=== PATIENT | female | born 1975 | race Caucasian/White ===

== ENCOUNTER 2017-07-17 19:12 | Inpatient (IN) | payer OTHER ==
[~2017-07-17] VITALS: Ht 175.3 cm; Wt 203.6 kg
[2017-07-17 21:17] VITALS: BP 121/59; PULSE 77; RESP 22
[2017-07-17 21:19] VITALS: Ht 175.3 cm; Wt 203.6 kg
[2017-07-17 21:27] VITALS: PULSE 65
[2017-07-17] MEDS: ALBUTEROL/IPRATROPIUM (NEB) 3 ML AMP HHN SCH (22:19)
[2017-07-17] MEDS ORDERED: morphine 2 MG INJ IV PRN (22:30)
[2017-07-17] MEDS ORDERED: GLUCOSE GEL 15 GRAM TUBE BUCCAL PRN (23:00)
[2017-07-17] MEDS ORDERED: GLUCAGON 1 MG INJ IM PRN (23:00)
[2017-07-17] MEDS ORDERED: DEXTROSE 50% 50 ML SYRINGE IV PRN ×2 (23:00)
[2017-07-17] MEDS ORDERED: GLUCOSE GEL 15 GRAM TUBE PO PRN ×2 (23:00)
[2017-07-18] VITALS (14 sets, daily range): BP systolic 115–145; BP diastolic 63–83; PULSE 34–87; RESP 16–21
[2017-07-18] MEDS: ALBUTEROL/IPRATROPIUM (NEB) 3 ML AMP HHN SCH ×6 (00:41→20:09)
[2017-07-18] MEDS ORDERED: ACCU-CHEK XX SCH (02:00)
[2017-07-18] MEDS: ACCU-CHEK XX SCH (02:00)
[2017-07-18] MEDS ORDERED: FUROSEMIDE 20 MG INJ IV SCH (06:00)
--- NOTE | 2017-07-18 07:17 | HP ---
Date/Time of Note Date/Time of Note DATE: 07/18/17 TIME: 07:08 Assessment/Plan VTE Prophylaxis VTE Prophylaxis Intervention: LMWH Lines/Catheters IV Catheter Type (from [facility]): Saline Lock Urinary Cath still in place: No Assessment/Plan Assessment/Plan 1. Shortness of breath with hypoxia -Differential diagnoses are broad, including pulmonary edema from a cardiac etiology vs pulmonary embolism. Her weight and the sleep apnea is also a contributing factor here. -Will be treated with supplemental oxygen, bronchodilators, diuresis with Lasix. Will empirically start treatment dose Lovenox given elevated d-dimer. Obtain lower extremity Doppler ultrasound to evaluate for DVT. -will obtain a 2D echo -Will check to see if V/Q scan can be done -Place a pulmonary consult 2. Chest pain, need to rule out ACS -Trend troponin -Supplemental oxygen and aspirin -Continue treatment dose Lovenox considering PE is possibility 3. Morbid obesity, with a BMI of 66 -Weight reduction advised 4. Obstructive sleep apnea -CPAP at night -Continue supplemental oxygen 5. History of diabetes -Check A1c -Insulin while in-house HPI/ROS Admit Date/Time Admit Date/Time Jul 17, 2017 at 21:00 Hx of Present Illness This is a 42-year-old morbidly obese female with a BMI of 66, history of diabetes, sleep apnea who initially presented on outside hospital complaining of shortness of breath, cough and chest pain. Symptoms started about a month ago and have been progressively getting worse. Cough is dry. Chest pain is located in the mid chest with no radiation. She denied fever, chills, abdominal pain, nausea or vomiting. When she presented to the outside hospital , she was hypoxic with oxygen saturation of 89% on room air and 97% on 2 L. Chest x-ray shows pulmonary edema and cardiomegaly. D-dimer was elevated. Reportedly, because of her weight, CT pulmonary angiogram and V/Q scan could not be done. Patient was transferred to [facility] because of insurance reasons PMH/Family/Social Social History Smoking Status: Former smoker Exam/Review of Systems Vital Signs Vitals Vital Signs Date Time Temp Pulse Resp B/P Pulse Ox O2 Delivery O2 Flow Rate FiO2 07/18/17 06:20 84 95 36 07/18/17 05:30 3.0 07/18/17 05:27 22 07/18/17 04:00 98.1 145/77 07/18/17 00:41 Aerosol Nasal Cannula Intake and Output 07/17/17 07/17/17 07/18/17 15:00 23:00 07:00 Intake Total 500 ml Balance 500 ml Exam Constitutional: other (Obese female lying in bed, and showing sign of mild respiratory distress) Head: atraumatic, normocephalic Eyes: EOMI, PERRL Respiratory: diminished breath sounds Cardiovascular: nl pulses, regular rate and rhythm Gastrointestinal: other (Obese), soft Extremities: normal pulses Medications Medications Current Medications Furosemide (Lasix) 20 mg DAILY@06 IV Last administered on 07/18/17t 05:55; Admin Dose 20 MG; Start 07/18/17 at 06:00 Diagnostic Test (Pha) (Accu-Chek) 1 ea 02 XX ; Start 07/18/17 at 02:00 Morphine Sulfate (morphine) 2 mg Q4H PRN IV PAIN; Start 07/17/17 at 22:30 Miscellaneous Information 1 ea NOTE XX ; Start 07/17/17 at 23:00 Glucose (Glutose) 15 gm Q15M PRN PO DECREASED GLUCOSE; Start 07/17/17 at 23:00 Glucose (Glutose) 22.5 gm Q15M PRN PO DECREASED GLUCOSE; Start 07/17/17 at 23: 00 Dextrose (D50w Syringe) 25 ml Q15M PRN IV DECREASED GLUCOSE; Start 07/17/17 at 23:00 Dextrose (D50w Syringe) 50 ml Q15M PRN IV DECREASED GLUCOSE; Start 07/17/17 at 23:00 Glucagon (Glucagen) 1 mg Q15M PRN IM DECREASED GLUCOSE; Start 07/17/17 at 23: 00 Glucose (Glutose) 15 gm Q15M PRN BUCCAL DECREASED GLUCOSE; Start 07/17/17 at 23:00 Influenza Virus Vaccine (Fluzone) 0.5 ml ONCE ONCE IM* ; Start 07/18/17 at 09: 00; Stop 07/18/17 at 09:01 DAVID DONAHUE MD Jul 18, 2017 07:17
[2017-07-18] MEDS: INSULIN ASPART [NOVOLOG] 3 ML PEN SC SCH ×4 (07:55→21:00)
[2017-07-18 08:23] LABS: BASOPHILS % 0.1 % (0.0-2.0); EOSINOPHILS # 0.1 10^3/ul (0.0-0.5); EOSINOPHILS % 0.6 % (0.0-7.0); HEMOGLOBIN 12.1 g/dl (12.0-16.0); LYMPHOCYTES # 1.6 10^3/ul (0.8-2.9); LYMPHOCYTES % 15.8 % (15.0-51.0); MEAN CORPUSCULAR HEMOGLOBIN 27.6 pg (29.0-33.0); MEAN CORPUSCULAR HGB CONC 30.3 g/dl (32.0-37.0); MEAN CORPUSCULAR VOLUME 91.3 fl (82.0-101.0); MEAN PLATELET VOLUME 9.8 fl (7.4-10.4); MONOCYTE # 0.4 10^3/ul (0.3-0.9); MONOCYTES % 3.9 % (0.0-11.0); NEUTROPHILS % 79.1 % (39.0-77.0); PLATELET COUNT 317 10^3/UL (140-415); RED BLOOD COUNT 4.38 10^6/ul (4.20-5.40); RED CELL DISTRIBUTION WIDTH 15.5 % (11.5-14.5); WHITE BLOOD COUNT 10.1 10^3/ul (4.8-10.8)
[2017-07-18] MEDS: ASPIRIN (EC) 81 MG TAB PO SCH (08:29)
[2017-07-18 08:45] LABS: ALANINE AMINOTRANSFERASE 35 IU/L (13-69); ALBUMIN 3.7 g/dl (3.3-4.9); ALBUMIN/GLOBULIN RATIO 0.88; ALKALINE PHOSPHATASE 100 IU/L (42-121); ANION GAP 10 (8-16); ASPARTATE AMINO TRANSFERASE 20 IU/L (15-46); BILIRUBIN,INDIRECT 0.3 mg/dl (0-1.1); BILIRUBIN,TOTAL 0.3 mg/dl (0.2-1.3); BLOOD UREA NITROGEN 12 mg/dl (7-20); CALCIUM 8.7 mg/dl (8.4-10.2); CARBON DIOXIDE 36 mmol/L (21-31); CHLORIDE 101 mmol/L (97-110); CHOL/HDL RATIO 4.6 RATIO; CHOLESTEROL 126 mg/dl (100-200); CK-MB 0.54 ng/ml (0.0-2.4); CREATINE KINASE 36 IU/L (23-200); CREATININE 0.52 mg/dl (0.44-1.00); GLUCOSE 109 mg/dl (70-220); HDL CHOLESTEROL 27 mg/dl (34-88); POTASSIUM 4.4 mmol/L (3.5-5.1); SODIUM 143 mmol/L (135-144); TOTAL PROTEIN 7.9 g/dl (6.1-8.1); TRIGLYCERIDES 106 mg/dl (0-149); TROPONIN-I < 0.012 ng/ml (0.00-0.12)
[2017-07-18] MEDS ORDERED: INFLUENZA VIRUS VACCINE 0.5 ML (DISPENSING) IM* ONE (09:00)
--- NOTE | 2017-07-18 10:30 | RADRPT ---
PROCEDURE: US bilateral lower extremity veins. CLINICAL INDICATION: Shortness of breath. TECHNIQUE: Multiple longitudinal and transverse images of the bilateral lower extremity veins were obtained with morales scale and color Doppler imaging. The common femoral vein, femoral vein, and popl iteal vein were evaluated. 2D grayscale measurements with compression sonography, color Doppler, and pulsed Doppler with augmentation. COMPARISON: No prior studies are available for comparison. FINDINGS: The bilateral common femoral, femoral and popliteal veins are normally compressible throughout. Col or flow demonstrates normal filling of the vessels. Normal waveforms are visualized and there is no rmal response to augmentation. IMPRESSION: 1. No evidence of deep vein thrombosis involving either lower extremity. RPTAT: QQ .Charly Riddle MD, MD Date Time Electronically viewed and signed by .Charly Riddle MD, MD on 07/18/2017 10:30 .R/
--- NOTE | 2017-07-18 12:17 | CONS ---
Date/Time of Note Date/Time of Note DATE: 07/18/17 TIME: 12:12 Assessment/Plan Assessment/Plan Additional Assessment/Plan Lower extremity venous Doppler is negative for any DVT. Assessment and recommendations; 1. Patient admitted for shortness of breath which is likely from underlying obesity/hypoventilation syndrome with possibly superimposed obstructive sleep apnea. 2. History of diabetes and hypertension. Obtain a blood gas. Will obtain a chest x-ray. Continue BiPAP for now. Further recommendations to be made once ABG and chest x-ray results are available. Consultation Date/Type/Reason Admit Date/Time Jul 17, 2017 at 21:00 Date of Consultation: Jul 18, 2017 Type of Consultation: Pulmonary Reason for Consultation Pulmonary consultation requested for evaluation of shortness of breath. History of presenting illness; patient is a pleasant 42-year-old lady who came into the hospital yesterday with a few days history of increasing shortness of breath. Patient however denies any chest pain, wheezing, coughing, sputum production. Patient has been started on overnight BiPAP and according to her she is improved significantly. Patient denies any abdominal pain, lower extremity pain, any swelling. Denies any fever or chills. Past medical history; 1. Patient with history of diabetes. 2. History of hypertension. 3. No known history of sleep apnea. 4. History of C-sections. Medications; reviewed. Allergies; none. Social history; patient quit smoking 10 years ago. No history of any alcohol or drug abuse. Family history; she is single, she has 3 children. Various family members of diabetes. Occupation history; patient is on disability. General exam; young woman, morbidly obese, currently in no distress. Awake and alert. Social History Smoking Status: Former smoker Exam/Review of Systems Vital Signs Vitals Vital Signs Date Time Temp Pulse Resp B/P Pulse Ox O2 Delivery O2 Flow Rate FiO2 07/18/17 11:38 98.5 71 21 138/83 95 07/18/17 09:56 3.0 07/18/17 09:55 Nasal Cannula 07/18/17 06:20 36 Intake and Output 07/17/17 07/17/17 07/18/17 15:00 23:00 07:00 Intake Total 500 ml Balance 500 ml Exam HEENT exam; supple neck, no JVD. No lymphadenopathy. Midline trachea. No thyromegaly. Pharynx is clear. Pupils are midsize and reactive to light. Chest exam; diminished but clear breath sounds. S1-S2 audible, no murmurs. Regular rhythm. Abdomen exam; protuberant. Nontender. Bowel sounds audible. Extremity exam; no peripheral edema. SAND MIXER MACHINE exam; no focal deficit. Results Result Diagram: 07/18/17 0733 07/18/17 0733 Results 24 hrs Laboratory Tests Test 07/18/17 07:33 07/18/17 08:26 07/18/17 11:49 White Blood Count 10.1 Red Blood Count 4.38 Hemoglobin 12.1 Hematocrit 40.0 Mean Corpuscular Volume 91.3 Mean Corpuscular Hemoglobin 27.6 L Mean Corpuscular Hemoglobin Concent 30.3 L Red Cell Distribution Width 15.5 H Platelet Count 317 Mean Platelet Volume 9.8 Neutrophils % 79.1 H Lymphocytes % 15.8 Monocytes % 3.9 Eosinophils % 0.6 Basophils % 0.1 Nucleated Red Blood Cells % 0.0 Neutrophils # 8.0 H Lymphocytes # 1.6 Monocytes # 0.4 Eosinophils # 0.1 Basophils # 0.0 Nucleated Red Blood Cells # 0.0 Sodium Level 143 Potassium Level 4.4 Chloride Level 101 Carbon Dioxide Level 36 H Anion Gap 10 Blood Urea Nitrogen 12 Creatinine 0.52 Glucose Level 109 Hemoglobin A1c 6.4 H Calcium Level 8.7 Total Bilirubin 0.3 Direct Bilirubin 0.00 Indirect Bilirubin 0.3 Aspartate Amino Transf (AST/SGOT) 20 Alanine Aminotransferase (ALT/SGPT) 35 Alkaline Phosphatase 100 Creatine Kinase 36 Creatine Kinase Index 1.5 Creatinine Kinase MB (Mass) 0.54 Troponin I < 0.012 Total Protein 7.9 Albumin 3.7 Globulin 4.20 H Albumin/Globulin Ratio 0.88 Triglycerides Level 106 Cholesterol Level 126 LDL Cholesterol, Calculated 78 HDL Cholesterol 27 L Cholesterol/HDL Ratio 4.6 Thyroid Stimulating Hormone (TSH) 1.070 Bedside Glucose 104 193 Medications Medications Current Medications Furosemide (Lasix) 20 mg DAILY@06 IV Last administered on 07/18/17t 05:55; Admin Dose 20 MG; Start 07/18/17 at 06:00 Diagnostic Test (Pha) (Accu-Chek) 1 ea 02 XX ; Start 07/18/17 at 02:00 Morphine Sulfate (morphine) 2 mg Q4H PRN IV PAIN; Start 07/17/17 at 22:30 Miscellaneous Information 1 ea NOTE XX ; Start 07/17/17 at 23:00 Glucose (Glutose) 15 gm Q15M PRN PO DECREASED GLUCOSE; Start 07/17/17 at 23:00 Glucose (Glutose) 22.5 gm Q15M PRN PO DECREASED GLUCOSE; Start 07/17/17 at 23: 00 Dextrose (D50w Syringe) 25 ml Q15M PRN IV DECREASED GLUCOSE; Start 07/17/17 at 23:00 Dextrose (D50w Syringe) 50 ml Q15M PRN IV DECREASED GLUCOSE; Start 07/17/17 at 23:00 Glucagon (Glucagen) 1 mg Q15M PRN IM DECREASED GLUCOSE; Start 07/17/17 at 23: 00 Glucose (Glutose) 15 gm Q15M PRN BUCCAL DECREASED GLUCOSE; Start 07/17/17 at 23:00 Enoxaparin Sodium (Lovenox) 150 mg Q12 SC ; Start 07/18/17 at 09:00; Status UNV Aspirin (Halfprin) 81 mg DAILY PO Last administered on 07/18/17t 08:29; Admin Dose 81 MG; Start 07/18/17 at 09:00 KAYDEN PANIAGUA Jul 18, 2017 12:17
[2017-07-18 13:46] LABS: AADO2 Arterial 73.5 mmHg (7.0-24.0); Allen Test ACCEPTAB; Arterial Base Excess 9.5 mmol/L (-3.0-3); Arterial COHb 0.8 % (0.0-3.0); Arterial Fraction of Oxyhgb 91.9 % (93.0-99.0); Arterial MetHb 0.2 % (0.0-1.5); Arterial Total Hemglobin 13.3 g/dl (12.0-18.0); MODE NASAL CANNULA
--- NOTE | 2017-07-18 13:57 | RADRPT ---
Echocardiogram Report Patient Name: YOUSUF TOLBERT Gender: Female Date: 1975 Study Date: 18-Jul-2017 Washer Operator: Diamante Trivedi RDCS Location: [id number] Ref. Physician: DAVID DONAHUE Quality: Technically Difficult Study Procedures: Transthoracic echocardiogram with complete 2D, M-Mode, and doppler examination. Indications: pulm edema. 2D/M Mode Doppler Measurement Value Normal Ranges Measurement Value Normal Ranges LVIDd 2D 4.8 3.5 - 5.6 cm AV Peak Srinivasa 1.7 m/sec LVIDs 2D 3.2 2.1 - 4.1 cm AV Peak PG 11.0 mmHg FS 2D 34.6 % LVOT Peak Srinivasa 1.3 m/sec LVPWd 2D 1.3 0.6 - 1.1 cm LVOT Peak PG 7.0 mmHg IVSd 2D 1.3 0.6 - 1.1 cm MV E Peak Srinivasa 0.7 m/sec IVS/LVPW 2D 1.0 MV A Peak Srinivasa 0.9 m/sec AoR Diam 2D 3.0 2.0 - 3.7 cm MV E/A 0.7 LA/Ao 2D 1 0 - 1 MV Decel Time 173 msec EDV 2D 112.0 cm3 MV E/A 0.7 ESV 2D 31.3 cm3 TR Peak Srinivasa 3.0 m/sec LA Dimen 2D 3.8 2.3 - 4.0 cm TR Peak PG 37.0 mmHg RVSP 52.0 mmHg Findings Left Ventricle: Normal left ventricular systolic function. Normal left ventricular cavity size. Mild concentric left ventricular hypertrophy. Ejection fraction is visually estimated at 55 %. Tissue Doppler/Mitral Doppler indices are consistent with impaired relaxation (Stage I diastolic dysfunction). Right Ventricle: Not well visualized. Left Atrium: Not well visualized. Right Atrium: Not well visualized. Mitral Valve: Mitral valve is not well visualized. Aortic Valve: No significant aortic stenosis or insufficiency. Aortic valve not well visualized. Tricuspid Valve: Tricuspid valve not well visualized. Estimated peak PA systolic pressure 52 mmHg. There is mild tricuspid regurgitation. Pulmonic Valve: Pulmonic valve not well visualized. Pericardium: Normal pericardium with no significant pericardial effusion. Aorta: Not well visualized. IVC: Dilated IVC without respiratory collapse consistent with elevated right atrial pressure. Conclusions 1.Technically challenging study. 2.The left ventricle is normal in size with overall normal systolic function. However, not all wall segments well visualized. 3.Estimated left ventricular ejection fraction of 55%. 4.Pulmonary hypertension with estimated RVSP of 52 mmHg. Elevated right atrial pressure. Electronically Signed By: Willam Randolph 18-Jul-2017 13:56:45 -0700 Patient Name: YOUSUF TOLBERT Study Date: 18-Jul-2017 [id number]
[2017-07-18] MEDS: ENOXAPARIN 100 MG/ML SYG SC SCH (14:13)
--- NOTE | 2017-07-18 14:14 | RADRPT ---
PROCEDURE: XR Chest. CLINICAL INDICATION: Shortness of breath. TECHNIQUE: Single frontal view. COMPARISON: None. FINDINGS: The lungs are clear. The heart is mildly enlarged. There is no pleural effusion. There is no pneumothorax. IMPRESSION: 1. Mild cardiomegaly. 2. Clear lungs. RPTAT: QQ .Charly Riddle MD, MD Date Time Electronically viewed and signed by .Charly Riddle MD, on 07/18/2017 14:14 .R/
[2017-07-18 14:29] LABS: CREATINE KINASE 39 IU/L (23-200)
[2017-07-18 14:43] LABS: CK-MB 0.42 ng/ml (0.0-2.4)
[2017-07-18 14:44] LABS: TROPONIN-I < 0.012 ng/ml (0.00-0.12)
--- NOTE | 2017-07-18 15:03 | PN ---
Date/Time of Note Date/Time of Note DATE: 07/18/17 TIME: 14:58 Assessment/Plan VTE Prophylaxis VTE Prophylaxis Intervention: SCD's Lines/Catheters IV C[facility]ter Type (from [facility]): Saline Lock Urinary Cath still in place: No Assessment/Plan Chief Complaint/Hosp Course Assessment and plan 1. Shortness of breath and hypoxia. Suspect some element of obesity hypoventilation. Continue internet manager recommendations. tirate off o2 if possible. Unable to obtain a VQ scan or CT scan of the chest due to patient's body habitus. 2. Chest pain. Rule out ACS. Monitor troponin. Gym Manager follow. Echocardiogram showed diastolic dysfunction. 3. Morbid obesity. Weight reduction was advised. 4. Sleep apnea. Continue on CPAP. 5. Hyperlipidemia. Continue on low fat/cholesterol diet Disposition and plan: Monitor respiratory status. Follow-up with internet manager or conditions. Discussed plan of care with Dr. Dockery Problems: Subjective 24 Hr Interval Summary Free Text/Dictation reports little better breathing today Exam/Review of Systems Vital Signs Vitals Vital Signs Date Time Temp Pulse Resp B/P Pulse Ox O2 Delivery O2 Flow Rate FiO2 07/18/17 14:15 96 3.0 07/18/17 14:14 76 20 Nasal Cannula 07/18/17 11:38 98.5 138/83 07/18/17 06:20 36 Intake and Output 07/17/17 07/17/17 07/18/17 15:00 23:00 07:00 Intake Total 500 ml Balance 500 ml Exam Constitutional: alert, oriented Eyes: nl conjunctiva Neck: non-tender, supple Respiratory: diminished breath sounds (minimally at bases) Cardiovascular: other (regular rate ) Neurological: GRAPHIC SPECIALIST II-XII intact, nl mental status, nl speech Skin: nl turgor Results Result Diagram: 07/18/17 0733 07/18/1733 Results 24 hrs Laboratory Tests Test 07/18/17 07:33 07/18/17 08:26 07/18/17 11:49 07/18/17 12:17 White Blood Count 10.1 Red Blood Count 4.38 Hemoglobin 12.1 Hematocrit 40.0 Mean Corpuscular Volume 91.3 Mean Corpuscular Hemoglobin 27.6 L Mean Corpuscular Hemoglobin Concent 30.3 L Red Cell Distribution Width 15.5 H Platelet Count 317 Mean Platelet Volume 9.8 Neutrophils % 79.1 H Lymphocytes % 15.8 Monocytes % 3.9 Eosinophils % 0.6 Basophils % 0.1 Nucleated Red Blood Cells % 0.0 Neutrophils # 8.0 H Lymphocytes # 1.6 Monocytes # 0.4 Eosinophils # 0.1 Basophils # 0.0 Nucleated Red Blood Cells # 0.0 Sodium Level 143 Potassium Level 4.4 Chloride Level 101 Carbon Dioxide Level 36 H Anion Gap 10 Blood Urea Nitrogen 12 Creatinine 0.52 Glucose Level 109 Hemoglobin A1c 6.4 H Calcium Level 8.7 Total Bilirubin 0.3 Direct Bilirubin 0.00 Indirect Bilirubin 0.3 Aspartate Amino Transf (AST/SGOT) 20 Alanine Aminotransferase (ALT/SGPT) 35 Alkaline Phosphatase 100 Creatine Kinase 36 Creatine Kinase Index 1.5 Creatinine Kinase MB (Mass) 0.54 Troponin I < 0.012 Total Protein 7.9 Albumin 3.7 Globulin 4.20 H Albumin/Globulin Ratio 0.88 Triglycerides Level 106 Cholesterol Level 126 LDL Cholesterol, Calculated 78 HDL Cholesterol 27 L Cholesterol/HDL Ratio 4.6 Thyroid Stimulating Hormone (TSH) 1.070 Bedside Glucose 104 193 Blood Gas Specimen Source Blood arterial Arterial Blood Date Drawn 07/18/2017 1:31:51 PM Arterial Blood pH (Temp corrected) 7.382 Arterial Blood pCO2 (Temp correct) 63.7 H Arterial Blood pO2 (Temp corrected) 65.6 L Arterial Blood HCO3 37.0 H Arterial Blood Base Excess 9.5 H Arterial Blood Oxygen Saturation 92.8 L Josafat Test ACCEPTAB Arterial Blood Gas Puncture Site Right Radial Arterial Blood Carboxyhemoglobin 0.8 Arterial Blood Methemoglobin 0.2 Blood Gas A-a O2 Differential 73.5 H Oxyhemoglobin Percent 91.9 L Total Hemoglobin 13.3 Blood Gas Temperature 37.0 Blood Gas Modality NASAL CANNULA FiO2 30.0 Blood Gas Notified Whom Blood Gas Notified Time 07/18/2017 1:45:48 PM Test 07/18/17 14:01 Creatine Kinase 39 Creatine Kinase Index 1.1 Creatinine Kinase MB (Mass) 0.42 Troponin I < 0.012 Medications Medications Current Medications Furosemide (Lasix) 20 mg DAILY@06 IV Last administered on 07/18/17t 05:55; Admin Dose 20 MG; Start 07/18/17 at 06:00 Diagnostic Test (Pha) (Accu-Chek) 1 ea 02 XX ; Start 07/18/17 at 02:00 Morphine Sulfate (morphine) 2 mg Q4H PRN IV PAIN; Start 07/17/17 at 22:30 Miscellaneous Information 1 ea NOTE XX ; Start 07/17/17 at 23:00 Glucose (Glutose) 15 gm Q15M PRN PO DECREASED GLUCOSE; Start 07/17/17 at 23:00 Glucose (Glutose) 22.5 gm Q15M PRN PO DECREASED GLUCOSE; Start 07/17/17 at 23: 00 Dextrose (D50w Syringe) 25 ml Q15M PRN IV DECREASED GLUCOSE; Start 07/17/17 at 23:00 Dextrose (D50w Syringe) 50 ml Q15M PRN IV DECREASED GLUCOSE; Start 07/17/17 at 23:00 Glucagon (Glucagen) 1 mg Q15M PRN IM DECREASED GLUCOSE; Start 07/17/17 at 23: 00 Glucose (Glutose) 15 gm Q15M PRN BUCCAL DECREASED GLUCOSE; Start 07/17/17 at 23:00 Enoxaparin Sodium (Lovenox) 150 mg Q12H SC Last administered on 07/18/17 14: 13; Admin Dose 150 MG; Start 07/18/17 at 13:00 Aspirin (Halfprin) 81 mg DAILY PO Last administered on 07/18/17 08:29; Admin Dose 81 MG; Start 07/18/17 at 09:00 JENNIFER NINA Jul 18, 2017 15:03
--- NOTE | 2017-07-18 16:35 | CONS ---
Date/Time of Note Date/Time of Note DATE: 07/18/17 TIME: 16:23 Assessment/Plan Assessment/Plan Chief Complaint/Hosp Course Assessment: Shortness of breath and hypoxia - likely combination of heart failure and obesity hypoventilation syndrome, also some suspicion for pulmonary embolism with elevated D-dimer though patient is unable to get CTA or V/Q scan due to body habitus Atypical chest pain - ruled out for myocardial infarction Acute on chronic diastolic heart failure - LVEF 55%, dilated IVC with <50% respiratory collapse consistent with elevated right atrial pressure Pulmonary hypertension - estimated RVSP 52 mmHg, likely due to obstructive sleep apnea Morbid obesity Probable obstructive sleep apnea and obesity hypoventilation syndrome History of hypertension History of diabetes Recommendations: -increase Lasix to 40mg IV daily -on empiric anticoagulation with Lovenox, per primary team and pulmonology Problems: Consultation Date/Type/Reason Admit Date/Time Jul 17, 2017 at 21:00 Type of Consultation: Cardiology Reason for Consultation shortness of breath, chest pain Hx of Present Illness The patient is a 42 year-old morbidly obese female who presented to an outside hospital with shortness of breath and chest pain. She describes a two day history of shortness of breath and intermittent chest pain lasting for only several seconds when she coughs. She was noted to have hypoxia and an elevated D -dimer, and has been started empirically on anticoagulation with Lovenox. Lower extremity Dopplers were negative for deep vein thrombosis. CT pulmonary angiogram and V/Q scan was not able to be obtained due to the patient's body habitus and weight. She has been transferred to [facility] for further care due to her insurance contract. 14 point review of systems negative other than per HPI. Past Medical History Morbid obesity History of hypertension History of diabetes Social History Alcohol Use: sober Smoking Status: Former smoker Drug Use: none Exam/Review of Systems Vital Signs Vitals Vital Signs Date Time Temp Pulse Resp B/P Pulse Ox O2 Delivery O2 Flow Rate FiO2 07/18/17 15:46 98.1 74 19 126/74 95 07/18/17 14:15 3.0 07/18/17 14:14 Nasal Cannula 07/18/17 06:20 36 Intake and Output 07/17/17 07/17/17 07/18/17 15:00 23:00 07:00 Intake Total 500 ml Balance 500 ml Exam Constitutional: alert, obese, No distress Psych: nl mood/affect, no complaints Head: atraumatic, normocephalic Eyes: nl conjunctiva, nl lids ENMT: nl external ears & nose, nl nasal mucosa & septum Neck: non-tender, supple Respiratory: diminished breath sounds Cardiovascular: regular rate and rhythm Gastrointestinal: non-tender, soft Musculoskeletal: nl extremities to inspection Extremities: No clubbing, No cyanosis, No edema Neurological: nl mental status, nl speech Skin: nl turgor Results Result Diagram: 07/18/17 0733 07/18/17 0733 Results 24 hrs Laboratory Tests Test 07/18/17 07:33 07/18/17 08:26 07/18/17 11:49 07/18/17 12:17 White Blood Count 10.1 Red Blood Count 4.38 Hemoglobin 12.1 Hematocrit 40.0 Mean Corpuscular Volume 91.3 Mean Corpuscular Hemoglobin 27.6 L Mean Corpuscular Hemoglobin Concent 30.3 L Red Cell Distribution Width 15.5 H Platelet Count 317 Mean Platelet Volume 9.8 Neutrophils % 79.1 H Lymphocytes % 15.8 Monocytes % 3.9 Eosinophils % 0.6 Basophils % 0.1 Nucleated Red Blood Cells % 0.0 Neutrophils # 8.0 H Lymphocytes # 1.6 Monocytes # 0.4 Eosinophils # 0.1 Basophils # 0.0 Nucleated Red Blood Cells # 0.0 Sodium Level 143 Potassium Level 4.4 Chloride Level 101 Carbon Dioxide Level 36 H Anion Gap 10 Blood Urea Nitrogen 12 Creatinine 0.52 Glucose Level 109 Hemoglobin A1c 6.4 H Calcium Level 8.7 Total Bilirubin 0.3 Direct Bilirubin 0.00 Indirect Bilirubin 0.3 Aspartate Amino Transf (AST/SGOT) 20 Alanine Aminotransferase (ALT/SGPT) 35 Alkaline Phosphatase 100 Creatine Kinase 36 Creatine Kinase Index 1.5 Creatinine Kinase MB (Mass) 0.54 Troponin I < 0.012 Total Protein 7.9 Albumin 3.7 Globulin 4.20 H Albumin/Globulin Ratio 0.88 Triglycerides Level 106 Cholesterol Level 126 LDL Cholesterol, Calculated 78 HDL Cholesterol 27 L Cholesterol/HDL Ratio 4.6 Thyroid Stimulating Hormone (TSH) 1.070 Bedside Glucose 104 193 Blood Gas Specimen Source Blood arterial Arterial Blood Date Drawn 07/18/2017 1:31:51 PM Arterial Blood pH (Temp corrected) 7.382 Arterial Blood pCO2 (Temp correct) 63.7 H Arterial Blood pO2 (Temp corrected) 65.6 L Arterial Blood HCO3 37.0 H Arterial Blood Base Excess 9.5 H Arterial Blood Oxygen Saturation 92.8 L Josafat Test ACCEPTAB Arterial Blood Gas Puncture Site Right Radial Arterial Blood Carboxyhemoglobin 0.8 Arterial Blood Methemoglobin 0.2 Blood Gas A-a O2 Differential 73.5 H Oxyhemoglobin Percent 91.9 L Total Hemoglobin 13.3 Blood Gas Temperature 37.0 Blood Gas Modality NASAL CANNULA FiO2 30.0 Blood Gas Notified Whom Blood Gas Notified Time 07/18/2017 1:45:48 PM Test 07/18/17 14:01 Creatine Kinase 39 Creatine Kinase Index 1.1 Creatinine Kinase MB (Mass) 0.42 Troponin I < 0.012 Medications Medications Current Medications Furosemide (Lasix) 20 mg DAILY@06 IV Last administered on 07/18/17 05:55; Admin Dose 20 MG; Start 07/18/17 at 06:00 Diagnostic Test (Pha) (Accu-Chek) 1 ea 02 XX ; Start 07/18/17 at 02:00 Morphine Sulfate (morphine) 2 mg Q4H PRN IV PAIN; Start 07/17/17 at 22:30 Miscellaneous Information 1 ea NOTE XX ; Start 07/17/17 at 23:00 Glucose (Glutose) 15 gm Q15M PRN PO DECREASED GLUCOSE; Start 07/17/17 at 23:00 Glucose (Glutose) 22.5 gm Q15M PRN PO DECREASED GLUCOSE; Start 07/17/17 at 23: 00 Dextrose (D50w Syringe) 25 ml Q15M PRN IV DECREASED GLUCOSE; Start 07/17/17 at 23:00 Dextrose (D50w Syringe) 50 ml Q15M PRN IV DECREASED GLUCOSE; Start 07/17/17 at 23:00 Glucagon (Glucagen) 1 mg Q15M PRN IM DECREASED GLUCOSE; Start 07/17/17 at 23: 00 Glucose (Glutose) 15 gm Q15M PRN BUCCAL DECREASED GLUCOSE; Start 07/17/17 at 23:00 Enoxaparin Sodium (Lovenox) 150 mg Q12H SC Last administered on 07/18/17 14: 13; Admin Dose 150 MG; Start 07/18/17 at 13:00 Aspirin (Halfprin) 81 mg DAILY PO Last administered on 07/18/17 08:29; Admin Dose 81 MG; Start 07/18/17 at 09:00 JARRET ADORNO MD Jul 18, 2017 16:34
[2017-07-18] MEDS: FUROSEMIDE 40 MG INJ IV SCH (16:59)
[2017-07-19] VITALS (17 sets, daily range): BP systolic 120–133; BP diastolic 59–87; PULSE 61–110; RESP 17–20
[2017-07-19] MEDS: ALBUTEROL/IPRATROPIUM (NEB) 3 ML AMP HHN SCH ×6 (00:45→21:10)
[2017-07-19] MEDS: ACCU-CHEK XX SCH (02:00)
[2017-07-19] MEDS: ENOXAPARIN 100 MG/ML SYG SC SCH (03:06)
[2017-07-19 07:18] LABS: BASOPHILS % 0.2 % (0.0-2.0); EOSINOPHILS # 0.1 10^3/ul (0.0-0.5); EOSINOPHILS % 1.1 % (0.0-7.0); HEMATOCRIT 39.4 % (37.0-47.0); LYMPHOCYTES # 1.7 10^3/ul (0.8-2.9); LYMPHOCYTES % 17.2 % (15.0-51.0); MEAN CORPUSCULAR HEMOGLOBIN 27.9 pg (29.0-33.0); MEAN CORPUSCULAR HGB CONC 30.5 g/dl (32.0-37.0); MEAN CORPUSCULAR VOLUME 91.6 fl (82.0-101.0); MEAN PLATELET VOLUME 9.5 fl (7.4-10.4); MONOCYTE # 0.5 10^3/ul (0.3-0.9); MONOCYTES % 4.7 % (0.0-11.0); NEUTROPHIL # 7.4 10^3/ul (1.6-7.5); NEUTROPHILS % 76.4 % (39.0-77.0); PLATELET COUNT 274 10^3/UL (140-415); RED CELL DISTRIBUTION WIDTH 15.2 % (11.5-14.5); WHITE BLOOD COUNT 9.7 10^3/ul (4.8-10.8)
[2017-07-19 07:43] LABS: CREATININE 0.51 mg/dl (0.44-1.00); POTASSIUM 4.1 mmol/L (3.5-5.1)
[2017-07-19] MEDS: INSULIN ASPART [NOVOLOG] 3 ML PEN SC SCH ×4 (07:55→20:34)
[2017-07-19] MEDS: ASPIRIN (EC) 81 MG TAB PO SCH (08:07)
[2017-07-19] MEDS: FUROSEMIDE 40 MG INJ IV SCH (08:12)
--- NOTE | 2017-07-19 11:41 | CONS ---
Date/Time of Note Date/Time of Note DATE: 07/19/17 TIME: 11:41 Consultation Date/Type/Reason Admit Date/Time Jul 17, 2017 at 21:00 Initial Consult Date 07/18/17 Type of Consultation: Pulmonary 24 HR Interval Summary Free Text/Dictation Patient not in room for evaluation. Exam/Review of Systems Vital Signs Vitals Vital Signs Date Time Temp Pulse Resp B/P Pulse Ox O2 Delivery O2 Flow Rate FiO2 07/19/17 10:48 20 87 Room Air 07/19/17 09:54 3.0 07/19/17 09:53 72 07/19/17 08:06 98.4 133/72 07/19/17 05:00 50 Intake and Output 07/18/17 07/18/17 07/19/17 15:00 23:00 07:00 Intake Total 800 ml 600 ml Output Total 1300 ml 1800 ml Balance -500 ml -1200 ml Results Result Diagram: 07/19/17 0701 07/19/17 0700 Results 24 hrs Laboratory Tests Test 07/18/17 11:49 07/18/17 12:17 07/18/17 14:01 07/18/17 16:58 Bedside Glucose 193 122 Blood Gas Specimen Source Blood arterial Arterial Blood Date Drawn 07/18/2017 1:31:51 PM Arterial Blood pH (Temp corrected) 7.382 Arterial Blood pCO2 (Temp correct) 63.7 H Arterial Blood pO2 (Temp corrected) 65.6 L Arterial Blood HCO3 37.0 H Arterial Blood Base Excess 9.5 H Arterial Blood Oxygen Saturation 92.8 L Josafat Test ACCEPTAB Arterial Blood Gas Puncture Site Right Radial Arterial Blood Carboxyhemoglobin 0.8 Arterial Blood Methemoglobin 0.2 Blood Gas A-a O2 Differential 73.5 H Oxyhemoglobin Percent 91.9 L Total Hemoglobin 13.3 Blood Gas Temperature 37.0 Blood Gas Modality NASAL CANNULA FiO2 30.0 Blood Gas Notified Whom DH Blood Gas Notified Time 07/18/2017 1:45:48 PM Creatine Kinase 39 Creatine Kinase Index 1.1 Creatinine Kinase MB (Mass) 0.42 Troponin I < 0.012 Test 07/18/17 21:06 07/19/17 07:00 07/19/17 07:01 07/19/17 08:05 Bedside Glucose 107 102 Sodium Level 140 Potassium Level 4.1 Chloride Level 98 Carbon Dioxide Level 39 H Anion Gap 7 L Blood Urea Nitrogen 14 Creatinine 0.51 Glucose Level 105 Calcium Level 9.0 White Blood Count 9.7 Red Blood Count 4.30 Hemoglobin 12.0 Hematocrit 39.4 Mean Corpuscular Volume 91.6 Mean Corpuscular Hemoglobin 27.9 L Mean Corpuscular Hemoglobin Concent 30.5 L Red Cell Distribution Width 15.2 H Platelet Count 274 Mean Platelet Volume 9.5 Neutrophils % 76.4 Lymphocytes % 17.2 Monocytes % 4.7 Eosinophils % 1.1 Basophils % 0.2 Nucleated Red Blood Cells % 0.0 Neutrophils # 7.4 Lymphocytes # 1.7 Monocytes # 0.5 Eosinophils # 0.1 Basophils # 0.0 Nucleated Red Blood Cells # 0.0 Medications Medications Current Medications Diagnostic Test (Pha) (Accu-Chek) 1 ea 02 XX ; Start 07/18/17 at 02:00 Morphine Sulfate (morphine) 2 mg Q4H PRN IV PAIN; Start 07/17/17 at 22:30 Miscellaneous Information 1 ea NOTE XX ; Start 07/17/17 at 23:00 Glucose (Glutose) 15 gm Q15M PRN PO DECREASED GLUCOSE; Start 07/17/17 at 23:00 Glucose (Glutose) 22.5 gm Q15M PRN PO DECREASED GLUCOSE; Start 07/17/17 at 23: 00 Dextrose (D50w Syringe) 25 ml Q15M PRN IV DECREASED GLUCOSE; Start 07/17/17 at 23:00 Dextrose (D50w Syringe) 50 ml Q15M PRN IV DECREASED GLUCOSE; Start 07/17/17 at 23:00 Glucagon (Glucagen) 1 mg Q15M PRN IM DECREASED GLUCOSE; Start 07/17/17 at 23: 00 Glucose (Glutose) 15 gm Q15M PRN BUCCAL DECREASED GLUCOSE; Start 07/17/17 at 23:00 Enoxaparin Sodium (Lovenox) 150 mg Q12H SC Last administered on 07/19/17 03: 06; Admin Dose 150 MG; Start 07/18/17 at 13:00 Aspirin (Halfprin) 81 mg DAILY PO Last administered on 07/19/17 08:07; Admin Dose 81 MG; Start 07/18/17 at 09:00 Furosemide (Lasix) 40 mg DAILY IV Last administered on 07/19/17 08:12; Admin Dose 40 MG; Start 07/18/17 at 16:30 KAYDEN PANIAGUA Jul 19, 2017 11:41
--- NOTE | 2017-07-19 12:04 | PN ---
Date/Time of Note Date/Time of Note DATE: 07/19/17 TIME: 11:54 Assessment/Plan VTE Prophylaxis VTE Prophylaxis Intervention: LMWH Lines/Catheters IV [facility] Type [facility]from [facility] Urinary Cath still in place: No Assessment/Plan Chief Complaint/Hosp Course 1. 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 Nose pain secondary to recent fall Facial x-ray to rule out any fractures 3. Atypical chest pain ACS ruled out Cardiology consultation appreciated 4. Acute on chronic diastolic heart failure - LVEF 55%, dilated IVC with elevated right atrial pressure Continue Lasix 40 mg IV daily 5. Morbid obesity Weight loss advised Prophylaxis: Lovenox . Problems: Subjective 24 Hr Interval Summary Constitutional: no complaints Exam/Review of Systems Vital Signs Vitals Vital Signs Date Time Temp Pulse Resp B/P Pulse Ox O2 Delivery O2 Flow Rate FiO2 07/19/17 10:48 20 87 Room Air 07/19/17 09:54 3.0 07/19/17 09:53 72 07/19/17 08:06 98.4 133/72 07/19/17 05:00 50 Intake and Output 07/18/17 07/18/17 07/19/17 15:00 23:00 07:00 Intake Total 800 ml 600 ml Output Total 1300 ml 1800 ml Balance -500 ml -1200 ml Exam Constitutional: alert, oriented Respiratory: clear to auscultation Cardiovascular: regular rate and rhythm Gastrointestinal: soft, No distended Musculoskeletal: nl extremities to inspection Results Result Diagram: 07/19/17 0701 07/19/17 0700 Results 24 hrs Laboratory Tests Test 07/18/17 12:17 07/18/17 14:01 07/18/17 16:58 07/18/17 21:06 Blood Gas Specimen Source Blood arterial Arterial Blood Date Drawn 07/18/2017 1:31:51 PM Arterial Blood pH (Temp corrected) 7.382 Arterial Blood pCO2 (Temp correct) 63.7 H Arterial Blood pO2 (Temp corrected) 65.6 L Arterial Blood HCO3 37.0 H Arterial Blood Base Excess 9.5 H Arterial Blood Oxygen Saturation 92.8 L Josafat Test ACCEPTAB Arterial Blood Gas Puncture Site Right Radial Arterial Blood Carboxyhemoglobin 0.8 Arterial Blood Methemoglobin 0.2 Blood Gas A-a O2 Differential 73.5 H Oxyhemoglobin Percent 91.9 L Total Hemoglobin 13.3 Blood Gas Temperature 37.0 Blood Gas Modality NASAL CANNULA FiO2 30.0 Blood Gas Notified Whom Blood Gas Notified Time 07/18/2017 1:45:48 PM Creatine Kinase 39 Creatine Kinase Index 1.1 Creatinine Kinase MB (Mass) 0.42 Troponin I < 0.012 Bedside Glucose 122 107 Test 07/19/17 07:00 07/19/17 07:01 07/19/17 08:05 Sodium Level 140 Potassium Level 4.1 Chloride Level 98 Carbon Dioxide Level 39 H Anion Gap 7 L Blood Urea Nitrogen 14 Creatinine 0.51 Glucose Level 105 Calcium Level 9.0 White Blood Count 9.7 Red Blood Count 4.30 Hemoglobin 12.0 Hematocrit 39.4 Mean Corpuscular Volume 91.6 Mean Corpuscular Hemoglobin 27.9 L Mean Corpuscular Hemoglobin Concent 30.5 L Red Cell Distribution Width 15.2 H Platelet Count 274 Mean Platelet Volume 9.5 Neutrophils % 76.4 Lymphocytes % 17.2 Monocytes % 4.7 Eosinophils % 1.1 Basophils % 0.2 Nucleated Red Blood Cells % 0.0 Neutrophils # 7.4 Lymphocytes # 1.7 Monocytes # 0.5 Eosinophils # 0.1 Basophils # 0.0 Nucleated Red Blood Cells # 0.0 Bedside Glucose 102 Medications Medications Current Medications Diagnostic Test (Pha) (Accu-Chek) 1 ea 02 XX ; Start 07/18/17 at 02:00 Morphine Sulfate (morphine) 2 mg Q4H PRN IV PAIN; Start 07/17/17 at 22:30 Miscellaneous Information 1 ea NOTE XX ; Start 07/17/17 at 23:00 Glucose (Glutose) 15 gm Q15M PRN PO DECREASED GLUCOSE; Start 07/17/17 at 23:00 Glucose (Glutose) 22.5 gm Q15M PRN PO DECREASED GLUCOSE; Start 07/17/17 at 23: 00 Dextrose (D50w Syringe) 25 ml Q15M PRN IV DECREASED GLUCOSE; Start 07/17/17 at 23:00 Dextrose (D50w Syringe) 50 ml Q15M PRN IV DECREASED GLUCOSE; Start 07/17/17 at 23:00 Glucagon (Glucagen) 1 mg Q15M PRN IM DECREASED GLUCOSE; Start 07/17/17 at 23: 00 Glucose (Glutose) 15 gm Q15M PRN BUCCAL DECREASED GLUCOSE; Start 07/17/17 at 23:00 Enoxaparin Sodium (Lovenox) 150 mg Q12H SC Last administered on 07/19/17 03: 06; Admin Dose 150 MG; Start 07/18/17 at 13:00 Aspirin (Halfprin) 81 mg DAILY PO Last administered on 07/19/17 08:07; Admin Dose 81 MG; Start 07/18/17 at 09:00 Furosemide (Lasix) 40 mg DAILY IV Last administered on 07/19/17 08:12; Admin Dose 40 MG; Start 07/18/17 at 16:30 JUAN CARLOS STAFFORD Jul 19, 2017 12:04
--- NOTE | 2017-07-19 13:40 | CONS ---
Date/Time of Note Date/Time of Note DATE: 07/19/17 TIME: 13:38 Assessment/Plan Assessment/Plan Chief Complaint/Hosp Course Assessment: Shortness of breath and hypoxia - likely combination of heart failure and obesity hypoventilation syndrome Atypical chest pain - ruled out for myocardial infarction Acute on chronic diastolic heart failure - LVEF 55%, dilated IVC with <50% respiratory collapse consistent with elevated right atrial pressure Pulmonary hypertension - estimated RVSP 52 mmHg, likely due to obstructive sleep apnea Morbid obesity Probable obstructive sleep apnea and obesity hypoventilation syndrome History of hypertension History of diabetes Recommendations: -continue Lasix 40mg IV daily Problems: Consultation Date/Type/Reason Admit Date/Time Jul 17, 2017 at 21:00 Initial Consult Date 07/18/17 Type of Consultation: Cardiology 24 HR Interval Summary Free Text/Dictation Diuresing well. Shortness of breath markedly improved. Therapeutic Lovenox has been discontinued by primary team. Detailed Summary Additional Comments 14 point review of systems without changes. Exam/Review of Systems Vital Signs Vitals Vital Signs Date Time Temp Pulse Resp B/P Pulse Ox O2 Delivery O2 Flow Rate FiO2 07/19/17 12:38 72 07/19/17 12:05 98.1 19 121/70 95 07/19/17 10:48 Room Air 07/19/17 09:54 3.0 07/19/17 05:00 50 Intake and Output 07/18/17 07/18/17 07/19/17 15:00 23:00 07:00 Intake Total 800 ml 600 ml Output Total 1300 ml 1800 ml Balance -500 ml -1200 ml Exam Constitutional: alert, obese, No distress Psych: nl mood/affect, no complaints Head: atraumatic, normocephalic Eyes: nl conjunctiva, nl lids ENMT: nl external ears & nose, nl nasal mucosa & septum Neck: non-tender, supple Respiratory: diminished breath sounds Cardiovascular: regular rate and rhythm Gastrointestinal: non-tender, soft Musculoskeletal: nl extremities to inspection Extremities: No clubbing, No cyanosis, No edema Neurological: nl mental status, nl speech Skin: nl turgor Results Result Diagram: 07/19/17 0701 07/19/17 0700 Results 24 hrs Laboratory Tests Test 07/18/17 14:01 07/18/17 16:58 07/18/17 21:06 07/19/17 07:00 Creatine Kinase 39 Creatine Kinase Index 1.1 Creatinine Kinase MB (Mass) 0.42 Troponin I < 0.012 Bedside Glucose 122 107 Sodium Level 140 Potassium Level 4.1 Chloride Level 98 Carbon Dioxide Level 39 H Anion Gap 7 L Blood Urea Nitrogen 14 Creatinine 0.51 Glucose Level 105 Calcium Level 9.0 Test 07/19/17 07:01 07/19/17 08:05 07/19/17 12:05 White Blood Count 9.7 Red Blood Count 4.30 Hemoglobin 12.0 Hematocrit 39.4 Mean Corpuscular Volume 91.6 Mean Corpuscular Hemoglobin 27.9 L Mean Corpuscular Hemoglobin Concent 30.5 L Red Cell Distribution Width 15.2 H Platelet Count 274 Mean Platelet Volume 9.5 Neutrophils % 76.4 Lymphocytes % 17.2 Monocytes % 4.7 Eosinophils % 1.1 Basophils % 0.2 Nucleated Red Blood Cells % 0.0 Neutrophils # 7.4 Lymphocytes # 1.7 Monocytes # 0.5 Eosinophils # 0.1 Basophils # 0.0 Nucleated Red Blood Cells # 0.0 Bedside Glucose 102 94 Medications Medications Current Medications Diagnostic Test (Pha) (Accu-Chek) 1 ea 02 XX ; Start 07/18/17 at 02:00 Morphine Sulfate (morphine) 2 mg Q4H PRN IV PAIN; Start 07/17/17 at 22:30 Miscellaneous Information 1 ea NOTE XX ; Start 07/17/17 at 23:00 Glucose (Glutose) 15 gm Q15M PRN PO DECREASED GLUCOSE; Start 07/17/17 at 23:00 Glucose (Glutose) 22.5 gm Q15M PRN PO DECREASED GLUCOSE; Start 07/17/17 at 23: 00 Dextrose (D50w Syringe) 25 ml Q15M PRN IV DECREASED GLUCOSE; Start 07/17/17 at 23:00 Dextrose (D50w Syringe) 50 ml Q15M PRN IV DECREASED GLUCOSE; Start 07/17/17 at 23:00 Glucagon (Glucagen) 1 mg Q15M PRN IM DECREASED GLUCOSE; Start 07/17/17 at 23: 00 Glucose (Glutose) 15 gm Q15M PRN BUCCAL DECREASED GLUCOSE; Start 07/17/17 at 23:00 Aspirin (Halfprin) 81 mg DAILY PO Last administered on 07/19/17t 08:07; Admin Dose 81 MG; Start 07/18/17 at 09:00 Furosemide (Lasix) 40 mg DAILY IV Last administered on 07/19/17t 08:12; Admin Dose 40 MG; Start 07/18/17 at 16:30 Enoxaparin Sodium (Lovenox) 40 mg DAILY SC ; Start 07/20/17 at 09:00 JARRET ADORNO MD Jul 19, 2017 13:40
--- NOTE | 2017-07-19 17:01 | RADRPT ---
PROCEDURE: X-ray facial bones. CLINICAL INDICATION: Trauma. Facial pain. TECHNIQUE: 2 views. Frontal and lateral. COMPARISON: No prior study is available for comparison. FINDINGS: There is no fracture. Overlying soft tissues are normal. Visualized paranasal sinuses are normal. There is no lytic or blastic lesion. There is no radiopaque foreign body. IMPRESSION: 1. Normal images of the facial bones. RPTAT: QQ .Charly Riddle MD, MD Date Time Electronically viewed and signed by .Charly Riddle MD, MD on 07/19/2017 17:00 .R/
[2017-07-20] VITALS (16 sets, daily range): BP systolic 113–130; BP diastolic 52–72; PULSE 63–100; RESP 16–18
[2017-07-20] MEDS: ALBUTEROL/IPRATROPIUM (NEB) 3 ML AMP HHN SCH ×6 (01:22→20:59)
[2017-07-20] MEDS: ACCU-CHEK XX SCH (01:49)
[2017-07-20 06:56] LABS: BASOPHILS % 0.1 % (0.0-2.0); EOSINOPHILS # 0.1 10^3/ul (0.0-0.5); EOSINOPHILS % 1.1 % (0.0-7.0); HEMATOCRIT 40.6 % (37.0-47.0); HEMOGLOBIN 12.6 g/dl (12.0-16.0); LYMPHOCYTES # 1.5 10^3/ul (0.8-2.9); LYMPHOCYTES % 17.2 % (15.0-51.0); MEAN CORPUSCULAR HEMOGLOBIN 28.2 pg (29.0-33.0); MEAN CORPUSCULAR VOLUME 90.8 fl (82.0-101.0); MEAN PLATELET VOLUME 9.4 fl (7.4-10.4); MONOCYTE # 0.4 10^3/ul (0.3-0.9); MONOCYTES % 4.2 % (0.0-11.0); NEUTROPHIL # 6.6 10^3/ul (1.6-7.5); NEUTROPHILS % 76.9 % (39.0-77.0); PLATELET COUNT 282 10^3/UL (140-415); RED BLOOD COUNT 4.47 10^6/ul (4.20-5.40); WHITE BLOOD COUNT 8.5 10^3/ul (4.8-10.8)
[2017-07-20 07:50] LABS: CALCIUM 8.8 mg/dl (8.4-10.2); CREATININE 0.55 mg/dl (0.44-1.00); POTASSIUM 4.3 mmol/L (3.5-5.1)
[2017-07-20] MEDS: INSULIN ASPART [NOVOLOG] 3 ML PEN SC SCH ×4 (07:55→21:00)
[2017-07-20] MEDS: ASPIRIN (EC) 81 MG TAB PO SCH (09:03)
[2017-07-20] MEDS: FUROSEMIDE 40 MG INJ IV SCH (09:04)
[2017-07-20] MEDS: ENOXAPARIN 40 MG/0.4 ML SYG SC SCH (09:08)
[2017-07-20] MEDS ORDERED: FURO40TA4 PO (12:03)
[2017-07-20] MEDS ORDERED: ASPI-664 PO (12:03)
--- NOTE | 2017-07-20 12:34 | CONS ---
Date/Time of Note Date/Time of Note DATE: 07/20/17 TIME: 12:32 Consult Date/Type/Reason Admit Date/Time Jul 17, 2017 at 21:00 Initial Consult Date 07/18/17 Type of Consultation: Pulmonary Subjective Comfortable this morning. No new events. Objective Vital Signs Date Time Temp Pulse Resp B/P Pulse Ox O2 Delivery O2 Flow Rate FiO2 07/20/17 11:44 98.2 78 18 122/69 92 07/20/17 09:24 21 07/20/17 09:04 Nasal Cannula 4.0 Intake and Output 07/19/17 07/19/17 07/20/17 15:00 23:00 07:00 Intake Total 900 ml 850 ml Output Total 1500 ml 1550 ml Balance -600 ml -700 ml Exam GENERAL: Obese lady comfortable at rest. VITAL SIGNS: per chart NECK: Supple. No JVD or lymphadenopathy. CARDIAC EXAM: S1, S2. No added sounds or murmurs. CHEST: clear bilaterally, No added sounds, rales or wheezes ABDOMEN: Soft, nontender. No guarding or rebound. EXTREMITIES: No cyanosis, clubbing or edema. NEUROLOGIC: Generalized weakness. No focal deficits. Results/Medications Result Diagram: 07/20/17 0616 07/20/17 0616 Results 24 hrs Laboratory Tests Test 07/19/17 17:03 07/19/17 20:18 07/20/17 06:16 07/20/17 07:57 Bedside Glucose 106 96 95 White Blood Count 8.5 Red Blood Count 4.47 Hemoglobin 12.6 Hematocrit 40.6 Mean Corpuscular Volume 90.8 Mean Corpuscular Hemoglobin 28.2 L Mean Corpuscular Hemoglobin Concent 31.0 L Red Cell Distribution Width 15.0 H Platelet Count 282 Mean Platelet Volume 9.4 Neutrophils % 76.9 Lymphocytes % 17.2 Monocytes % 4.2 Eosinophils % 1.1 Basophils % 0.1 Nucleated Red Blood Cells % 0.0 Neutrophils # 6.6 Lymphocytes # 1.5 Monocytes # 0.4 Eosinophils # 0.1 Basophils # 0.0 Nucleated Red Blood Cells # 0.0 Sodium Level 141 Potassium Level 4.3 Chloride Level 96 L Carbon Dioxide Level 35 H Anion Gap 14 # Blood Urea Nitrogen 11 Creatinine 0.55 Glucose Level 96 Calcium Level 8.8 Magnesium Level 1.9 Test 07/20/17 12:25 Bedside Glucose 95 Medications Current Medications Diagnostic Test (Pha) (Accu-Chek) 1 ea 02 XX ; Start 07/18/17 at 02:00 Morphine Sulfate (morphine) 2 mg Q4H PRN IV PAIN; Start 07/17/17 at 22:30 Miscellaneous Information 1 ea NOTE XX ; Start 07/17/17 at 23:00 Glucose (Glutose) 15 gm Q15M PRN PO DECREASED GLUCOSE; Start 07/17/17 at 23:00 Glucose (Glutose) 22.5 gm Q15M PRN PO DECREASED GLUCOSE; Start 07/17/17 at 23: 00 Dextrose (D50w Syringe) 25 ml Q15M PRN IV DECREASED GLUCOSE; Start 07/17/17 at 23:00 Dextrose (D50w Syringe) 50 ml Q15M PRN IV DECREASED GLUCOSE; Start 07/17/17 at 23:00 Glucagon (Glucagen) 1 mg Q15M PRN IM DECREASED GLUCOSE; Start 07/17/17 at 23: 00 Glucose (Glutose) 15 gm Q15M PRN BUCCAL DECREASED GLUCOSE; Start 07/17/17 at 23:00 Aspirin (Halfprin) 81 mg DAILY PO Last administered on 07/20/17 09:03; Admin Dose 81 MG; Start 07/18/17 at 09:00 Furosemide (Lasix) 40 mg DAILY IV Last administered on 07/20/17 09:04; Admin Dose 40 MG; Start 07/18/17 at 16:30 Enoxaparin Sodium (Lovenox) 40 mg DAILY SC Last administered on 07/20/17 09: 08; Admin Dose 40 MG; Start 07/20/17 at 09:00 Assessment/Plan Chief Complaint/Hosp Course Assessment 1. Obesity hypoventilation syndrome probable obstructive sleep apnea. Improved hypoxemia Plan Consider discharge outpatient sleep study. Outpatient pulmonary function testing possible restrictive lung disease Encourage activities and weight loss Problems: MELY MO MD, [facility] Jul 20, 2017 12:34
--- NOTE | 2017-07-20 14:29 | PDOCDIS ---
Discharge Instructions DIAGNOSIS Discharge Diagnosis 1. Acute respiratory failure secondary to obesity hypoventilation syndrome and diastolic heart failure 2. Nose pain secondary to recent fall 3. Atypical chest pain 4. Acute on chronic diastolic heart failure - LVEF 55%, dilated IVC with elevated right atrial pressure 5. Morbid obesity HOME CARE INSTRUCTIONS: Special Diet: CARB CONTROLLED, 1800 MERY, LOW FAT/CHOL FOLLOW UP/APPOINTMENTS Follow-up Plan 1. Follow up with your primary care provider in a week 2. Follow up with Dr. Merritt Albert in 1 week JENNIFER NINA Jul 20, 2017 14:29
--- NOTE | 2017-07-20 19:15 | CONS ---
Date/Time of Note Date/Time of Note DATE: 07/20/17 TIME: 19:13 Assessment/Plan Assessment/Plan Chief Complaint/Hosp Course Assessment: Shortness of breath and hypoxia - likely combination of heart failure and obesity hypoventilation syndrome, improved Atypical chest pain - ruled out for myocardial infarction Acute on chronic diastolic heart failure - LVEF 55%, dilated IVC with <50% respiratory collapse consistent with elevated right atrial pressure Pulmonary hypertension - estimated RVSP 52 mmHg, likely due to obstructive sleep apnea Morbid obesity Probable obstructive sleep apnea and obesity hypoventilation syndrome History of hypertension History of diabetes Recommendations: -change Lasix to 40m PO daily -discharge planning per primary team Problems: Consultation Date/Type/Reason Admit Date/Time Jul 17, 2017 at 21:00 Initial Consult Date 07/18/17 Type of Consultation: Cardiology 24 HR Interval Summary Free Text/Dictation No acute events. Shortness of breath improved. Detailed Summary Additional Comments 14 point review of systems without changes. Exam/Review of Systems Vital Signs Vitals Vital Signs Date Time Temp Pulse Resp B/P Pulse Ox O2 Delivery O2 Flow Rate FiO2 07/20/17 18:30 3.0 07/20/17 17:50 75 20 86 21 07/20/17 16:08 Nasal Cannula 07/20/17 15:24 98.0 122/64 Intake and Output 07/19/17 07/19/17 07/20/17 15:00 23:00 07:00 Intake Total 900 ml 850 ml Output Total 1500 ml 1550 ml Balance -600 ml -700 ml Exam Constitutional: alert, obese, No distress Psych: nl mood/affect, no complaints Head: atraumatic, normocephalic Eyes: nl conjunctiva, nl lids ENMT: nl external ears & nose, nl nasal mucosa & septum Neck: non-tender, supple Respiratory: diminished breath sounds Cardiovascular: regular rate and rhythm Gastrointestinal: non-tender, soft Musculoskeletal: nl extremities to inspection Extremities: No clubbing, No cyanosis, No edema Neurological: nl mental status, nl speech Skin: nl turgor Results Result Diagram: 07/20/17 0616 07/20/17 0616 Results 24 hrs Laboratory Tests Test 07/19/17 20:18 07/20/17 06:16 07/20/17 07:57 07/20/17 12:25 Bedside Glucose 96 95 95 White Blood Count 8.5 Red Blood Count 4.47 Hemoglobin 12.6 Hematocrit 40.6 Mean Corpuscular Volume 90.8 Mean Corpuscular Hemoglobin 28.2 L Mean Corpuscular Hemoglobin Concent 31.0 L Red Cell Distribution Width 15.0 H Platelet Count 282 Mean Platelet Volume 9.4 Neutrophils % 76.9 Lymphocytes % 17.2 Monocytes % 4.2 Eosinophils % 1.1 Basophils % 0.1 Nucleated Red Blood Cells % 0.0 Neutrophils # 6.6 Lymphocytes # 1.5 Monocytes # 0.4 Eosinophils # 0.1 Basophils # 0.0 Nucleated Red Blood Cells # 0.0 Sodium Level 141 Potassium Level 4.3 Chloride Level 96 L Carbon Dioxide Level 35 H Anion Gap 14 # Blood Urea Nitrogen 11 Creatinine 0.55 Glucose Level 96 Calcium Level 8.8 Magnesium Level 1.9 Test 07/20/17 17:01 Bedside Glucose 129 Medications Medications Current Medications Diagnostic Test (Pha) (Accu-Chek) 1 ea 02 XX ; Start 07/18/17 at 02:00 Morphine Sulfate (morphine) 2 mg Q4H PRN IV PAIN; Start 07/17/17 at 22:30 Miscellaneous Information 1 ea NOTE XX ; Start 07/17/17 at 23:00 Glucose (Glutose) 15 gm Q15M PRN PO DECREASED GLUCOSE; Start 07/17/17 at 23:00 Glucose (Glutose) 22.5 gm Q15M PRN PO DECREASED GLUCOSE; Start 07/17/17 at 23: 00 Dextrose (D50w Syringe) 25 ml Q15M PRN IV DECREASED GLUCOSE; Start 07/17/17 at 23:00 Dextrose (D50w Syringe) 50 ml Q15M PRN IV DECREASED GLUCOSE; Start 07/17/17 at 23:00 Glucagon (Glucagen) 1 mg Q15M PRN IM DECREASED GLUCOSE; Start 07/17/17 at 23: 00 Glucose (Glutose) 15 gm Q15M PRN BUCCAL DECREASED GLUCOSE; Start 07/17/17 at 23:00 Aspirin (Halfprin) 81 mg DAILY PO Last administered on 07/20/17 09:03; Admin Dose 81 MG; Start 07/18/17 at 09:00 Furosemide (Lasix) 40 mg DAILY IV Last administered on 07/20/17 09:04; Admin Dose 40 MG; Start 07/18/17 at 16:30 Enoxaparin Sodium (Lovenox) 40 mg DAILY SC Last administered on 07/20/17t 09: 08; Admin Dose 40 MG; Start 07/20/17 at 09:00 JARRET ADORNO MD Jul 20, 2017 19:14
[2017-07-21] VITALS (11 sets, daily range): BP systolic 106–132; BP diastolic 55–76; PULSE 63–83; RESP 17–19
[2017-07-21] MEDS: ALBUTEROL/IPRATROPIUM (NEB) 3 ML AMP HHN SCH ×3 (00:10→08:53)
[2017-07-21] MEDS: ACCU-CHEK XX SCH (02:00)
[2017-07-21] MEDS: FUROSEMIDE 40 MG TAB PO SCH ×2 (06:00→09:33)
[2017-07-21] MEDS: INSULIN ASPART [NOVOLOG] 3 ML PEN SC SCH ×2 (07:55→11:50)
[2017-07-21] MEDS: ASPIRIN (EC) 81 MG TAB PO SCH (08:17)
[2017-07-21] MEDS: ENOXAPARIN 40 MG/0.4 ML SYG SC SCH (08:21)
[2017-07-21 10:14] LABS: BASOPHILS % 0.1 % (0.0-2.0); EOSINOPHILS # 0.1 10^3/ul (0.0-0.5); HEMATOCRIT 40.1 % (37.0-47.0); HEMOGLOBIN 12.8 g/dl (12.0-16.0); LYMPHOCYTES # 1.6 10^3/ul (0.8-2.9); LYMPHOCYTES % 19.6 % (15.0-51.0); MEAN CORPUSCULAR HEMOGLOBIN 28.4 pg (29.0-33.0); MEAN CORPUSCULAR HGB CONC 31.9 g/dl (32.0-37.0); MEAN CORPUSCULAR VOLUME 88.9 fl (82.0-101.0); MEAN PLATELET VOLUME 9.3 fl (7.4-10.4); MONOCYTE # 0.3 10^3/ul (0.3-0.9); MONOCYTES % 3.4 % (0.0-11.0); NEUTROPHIL # 6.2 10^3/ul (1.6-7.5); NEUTROPHILS % 75.7 % (39.0-77.0); PLATELET COUNT 297 10^3/UL (140-415); RED BLOOD COUNT 4.51 10^6/ul (4.20-5.40); RED CELL DISTRIBUTION WIDTH 14.9 % (11.5-14.5); WHITE BLOOD COUNT 8.2 10^3/ul (4.8-10.8)
[2017-07-21 10:41] LABS: CALCIUM 8.8 mg/dl (8.4-10.2); CREATININE 0.52 mg/dl (0.44-1.00); POTASSIUM 4.2 mmol/L (3.5-5.1)
--- NOTE | 2017-07-21 10:56 | PN ---
Date/Time of Note Date/Time of Note LATE ENTRY DATE: 07/20/17 Assessment/Plan VTE Prophylaxis VTE Prophylaxis Intervention: other Lines/Catheters IV Catheter Type (from [facility]): Saline Lock Urinary Cath still in place: No Assessment/Plan Chief Complaint/Hosp Course Assessment and plan 1. Shortness of breath and hypoxia. Suspect some element of obesity hypoventilation. 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 continue o2 and titrate down as tolerated Unable to obtain a VQ scan or CT scan of the chest due to patient's body habitus. 2. Chest pain. Rule out ACS. Monitor troponin. [employer]er follow. Echocardiogram showed l diastolic dysfunction. 3. Morbid obesity. Weight reduction was advised. 4. Sleep apnea. Continue on CPAP. 5. hx Hyperlipidemia. continue low fat low cholesterol diet Disposition and plan:plan for home with o2. d/c planning Discussed plan of care with Dr. Dockery Problems: Subjective 24 Hr Interval Summary Free Text/Dictation reports better breathing Exam/Review of Systems Vital Signs Vitals Vital Signs Date Time Temp Pulse Resp B/P Pulse Ox O2 Delivery O2 Flow Rate FiO2 07/21/17 08:53 78 20 88 21 07/21/17 07:29 Nasal Cannula 2.0 07/21/17 07:28 97.7 132/65 Intake and Output 07/20/17 07/20/17 07/21/17 15:00 23:00 07:00 Intake Total 1600 ml 1200 ml Output Total 1600 ml Balance 1600 ml -400 ml Exam Constitutional: alert, oriented Psych: nl mood/affect Head: normocephalic Respiratory: No labored breathing, No wheezing Cardiovascular: nl pulses, regular rate and rhythm Neurological: BIG DATA LEAD II-XII intact, nl mental status, nl speech Skin: nl turgor Results Result Diagram: 07/21/17 1000 07/21/17 1000 Results 24 hrs Laboratory Tests Test 07/20/17 12:25 07/20/17 17:01 07/20/17 21:02 07/21/17 08:20 Bedside Glucose 95 129 150 93 Test 07/21/17 10:00 White Blood Count 8.2 Red Blood Count 4.51 Hemoglobin 12.8 Hematocrit 40.1 Mean Corpuscular Volume 88.9 Mean Corpuscular Hemoglobin 28.4 L Mean Corpuscular Hemoglobin Concent 31.9 L Red Cell Distribution Width 14.9 H Platelet Count 297 Mean Platelet Volume 9.3 Neutrophils % 75.7 Lymphocytes % 19.6 Monocytes % 3.4 Eosinophils % 1.0 Basophils % 0.1 Nucleated Red Blood Cells % 0.0 Neutrophils # 6.2 Lymphocytes # 1.6 Monocytes # 0.3 Eosinophils # 0.1 Basophils # 0.0 Nucleated Red Blood Cells # 0.0 Sodium Level 141 Potassium Level 4.2 Chloride Level 96 L Carbon Dioxide Level 33 H Anion Gap 16 Blood Urea Nitrogen 14 Creatinine 0.52 Glucose Level 131 Calcium Level 8.8 Medications Medications Current Medications Diagnostic Test (Pha) (Accu-Chek) 1 ea 02 XX ; Start 07/18/17 at 02:00 Morphine Sulfate (morphine) 2 mg Q4H PRN IV PAIN; Start 07/17/17 at 22:30 Miscellaneous Information 1 ea NOTE XX ; Start 07/17/17 at 23:00 Glucose (Glutose) 15 gm Q15M PRN PO DECREASED GLUCOSE; Start 07/17/17 at 23:00 Glucose (Glutose) 22.5 gm Q15M PRN PO DECREASED GLUCOSE; Start 07/17/17 at 23: 00 Dextrose (D50w Syringe) 25 ml Q15M PRN IV DECREASED GLUCOSE; Start 07/17/17 at 23:00 Dextrose (D50w Syringe) 50 ml Q15M PRN IV DECREASED GLUCOSE; Start 07/17/17 at 23:00 Glucagon (Glucagen) 1 mg Q15M PRN IM DECREASED GLUCOSE; Start 07/17/17 at 23: 00 Glucose (Glutose) 15 gm Q15M PRN BUCCAL DECREASED GLUCOSE; Start 07/17/17 at 23:00 Aspirin (Halfprin) 81 mg DAILY PO Last administered on 07/21/17 08:17; Admin Dose 81 MG; Start 07/18/17 at 09:00 Enoxaparin Sodium (Lovenox) 40 mg DAILY SC Last administered on 07/21/17 08: 21; Admin Dose 40 MG; Start 07/20/17 at 09:00 Furosemide (Lasix) 40 mg DAILY@06 PO Last administered on 07/21/17 09:33; Admin Dose 40 MG; Start 07/21/17 at 06:00 JENNIFER NINA Jul 21, 2017 10:56
--- NOTE | 2017-07-21 10:58 | CONS ---
Date/Time of Note Date/Time of Note DATE: 07/21/17 TIME: 10:56 Consult Date/Type/Reason Admit Date/Time Jul 17, 2017 at 21:00 Initial Consult Date 07/18/17 Type of Consultation: Pulmonary Subjective Patient comfortable. Objective Vital Signs Date Time Temp Pulse Resp B/P Pulse Ox O2 Delivery O2 Flow Rate FiO2 07/21/17 08:53 78 20 88 21 07/21/17 07:29 Nasal Cannula 2.0 07/21/17 07:28 97.7 132/65 Intake and Output 07/20/17 07/20/17 07/21/17 15:00 23:00 07:00 Intake Total 1600 ml 1200 ml Output Total 1600 ml Balance 1600 ml -400 ml Exam GENERAL: Obese lady comfortable at rest. VITAL SIGNS: per chart NECK: Supple. No JVD or lymphadenopathy. CARDIAC EXAM: S1, S2. No added sounds or murmurs. CHEST: clear bilaterally, No added sounds, rales or wheezes ABDOMEN: Soft, nontender. No guarding or rebound. EXTREMITIES: No cyanosis, clubbing or edema. NEUROLOGIC: Generalized weakness. No focal deficits. Results/Medications Result Diagram: 07/21/17 1000 07/21/17 1000 Results 24 hrs Laboratory Tests Test 07/20/17 12:25 07/20/17 17:01 07/20/17 21:02 07/21/17 08:20 Bedside Glucose 95 129 150 93 Test 07/21/17 10:00 White Blood Count 8.2 Red Blood Count 4.51 Hemoglobin 12.8 Hematocrit 40.1 Mean Corpuscular Volume 88.9 Mean Corpuscular Hemoglobin 28.4 L Mean Corpuscular Hemoglobin Concent 31.9 L Red Cell Distribution Width 14.9 H Platelet Count 297 Mean Platelet Volume 9.3 Neutrophils % 75.7 Lymphocytes % 19.6 Monocytes % 3.4 Eosinophils % 1.0 Basophils % 0.1 Nucleated Red Blood Cells % 0.0 Neutrophils # 6.2 Lymphocytes # 1.6 Monocytes # 0.3 Eosinophils # 0.1 Basophils # 0.0 Nucleated Red Blood Cells # 0.0 Sodium Level 141 Potassium Level 4.2 Chloride Level 96 L Carbon Dioxide Level 33 H Anion Gap 16 Blood Urea Nitrogen 14 Creatinine 0.52 Glucose Level 131 Calcium Level 8.8 Medications Current Medications Diagnostic Test (Pha) (Accu-Chek) 1 ea 02 XX ; Start 10/26/17 at 02:00 Morphine Sulfate (morphine) 2 mg Q4H PRN IV PAIN; Start 07/17/17 at 22:30 Miscellaneous Information 1 ea NOTE XX ; Start 07/17/17 at 23:00 Glucose (Glutose) 15 gm Q15M PRN PO DECREASED GLUCOSE; Start 07/17/17 at 23:00 Glucose (Glutose) 22.5 gm Q15M PRN PO DECREASED GLUCOSE; Start 07/17/17 at 23: 00 Dextrose (D50w Syringe) 25 ml Q15M PRN IV DECREASED GLUCOSE; Start 07/17/17 at 23:00 Dextrose (D50w Syringe) 50 ml Q15M PRN IV DECREASED GLUCOSE; Start 07/17/17 at 23:00 Glucagon (Glucagen) 1 mg Q15M PRN IM DECREASED GLUCOSE; Start 07/17/17 at 23: 00 Glucose (Glutose) 15 gm Q15M PRN BUCCAL DECREASED GLUCOSE; Start 07/17/17 at 23:00 Aspirin (Halfprin) 81 mg DAILY PO Last administered on 07/21/17 08:17; Admin Dose 81 MG; Start 07/18/17 at 09:00 Enoxaparin Sodium (Lovenox) 40 mg DAILY SC Last administered on 07/21/17 08: 21; Admin Dose 40 MG; Start 07/20/17 at 09:00 Furosemide (Lasix) 40 mg DAILY@06 PO Last administered on 07/21/17 09:33; Admin Dose 40 MG; Start 07/21/17 at 06:00 Assessment/Plan Chief Complaint/Hosp Course Assessment 1. Obesity hypoventilation syndrome probable obstructive sleep apnea. Improved hypoxemia Plan Consider discharge outpatient sleep study. Outpatient pulmonary function testing possible restrictive lung disease Encourage activities and weight loss Problems: MELY MO [facility], [facility] Jul 21, 2017 10:58
== END 2017-07-21 13:02 | disposition home or self-care (01) | DRG 291 ==
LOC: TEL 21:00
PROVIDERS: ADMIT Internal Medicine; ATTEND Internal Medicine
DX: I11.0 Hypertensive heart disease with heart failure (principal); J96.01 Acute respiratory failure with hypoxia; I27.29 Other secondary pulmonary hypertension; E66.2 Morbid (severe) obesity with alveolar hypoventilation; Z68.44 Body mass index [BMI] 60.0-69.9, adult; I50.33 Acute on chronic diastolic (congestive) heart failure; E11.9 Type 2 diabetes mellitus without complications; G47.33 Obstructive sleep apnea (adult) (pediatric); E78.5 Hyperlipidemia, unspecified; R07.89 Other chest pain; Z79.4 Long term (current) use of insulin; Z71.3 Dietary counseling and surveillance; Z87.891 Personal history of nicotine dependence
CPT/HCPCS: 36600; 70140; 71010; 80048; 80053; 80061; 82550; 82553; 82803; 82962; 83036; 83735; 84443; 84484; 85025; 87081; 90686; 93306; 93970; 94640; 94660; 94664; J1940; J1650; J1815

== ENCOUNTER 2017-08-06 16:59 | Emergency (ER) | payer SELFPAY ==
[~2017-08-06] VITALS: Ht 160 cm; Wt 190.0 kg
[~2017-08-06 16:59] MED LIST: ASPI-664 PO; FURO40TA4 PO
[2017-08-06 17:35] VITALS: Ht 160 cm; Wt 190.0 kg
== END 2017-08-06 18:17 | disposition left against medical advice (07) ==
LOC: E/R 16:59
DX: Z53.21 Procedure and treatment not carried out due to patient leaving prior to being seen by health care provider (principal)

== ENCOUNTER 2017-11-27 13:19 | Observation (INO) | END 2017-11-28 15:48 | disposition home or self-care (01) ==

== ENCOUNTER 2018-08-16 19:06 | Emergency (ER) | END 2018-08-16 21:34 | disposition home or self-care (01) ==

== ENCOUNTER 2018-09-09 13:06 | Day surgery (SDC) | END 2018-09-09 17:20 | disposition home or self-care (01) ==

== ENCOUNTER → 2018-11-16 | Emergency (ER) | payer OTHER ==
[~2018-11-16] VITALS: Ht 175.3 cm; Wt 161.8 kg
[~2018-11-16] MED LIST changes: -ASPI-664 PO; -FURO40TA4 PO; +IBUP-1542 PO; +LORA-441 PO
[2018-11-16 06:49] VITALS: BP 155/88; PULSE 82; RESP 21; Ht 175.3 cm; Wt 161.8 kg
--- NOTE | 2018-11-16 07:12 | ERD ---
ER Documentation Chief Complaint Chief Complaint anxiety x 4 days HPI 43-year-old female presents the emergency department complaining of anxiety. Patient states that she has been having anxiety and restless leg syndrome lately. She was started on gabapentin by her doctor approximately 4 days ago. Over that time, she continues to be significantly anxious and her anxiety is becoming slightly worse to the point where she states that she is unable to drive. She reports no suicidal or homicidal thoughts, no auditory or visual hallucinations. She reports no chest pain or shortness of breath or any other complaints other than the anxiety symptoms. ROS All systems reviewed and are negative except as per history of present illness. Medications Home Meds Active Scripts Lorazepam* (Ativan*) 0.5 Mg Tablet, 0.5 MG PO Q8H PRN for ANXIETY, #10 TAB Prov:JACQUELINE ALONZO 11/16/18 Ibuprofen* (Motrin*) 600 Mg Tab, 600 MG PO Q6H PRN for PAIN AND OR ELEVATED TEMP, #30 TAB Prov:FRANCES BOOKER MD 11/03/18 Allergies Allergies: Coded Allergies: No Known Allergy (Unverified , 11/03/18) PMhx/Soc History of Surgery: Yes (C/S X 3, TUBAL LIGATION) Anesthesia Reaction: No Hx Neurological Disorder: No Hx Respiratory Disorders: No Hx Cardiac Disorders: No (PREDIABETIC) Hx Psychiatric Problems: No Hx Miscellaneous Medical Probl: No Hx Alcohol Use: No Hx Substance Use: No Hx Tobacco Use: No Physical Exam Vitals Vital Signs Date Temp Pulse Resp B/P (MAP) Pulse Ox O2 O2 Flow FiO2 Time Delivery Rate 11/16/18 98.0 82 21 155/88 97 06:49 (110) Physical Exam GENERAL: Morbidly obese female who appears in no significant distress HEENT: Pupils equal, round, and reactive to light. EOMI. There is no scleral icterus. NECK: C-spine is soft and supple, there is no meningismus. There is no cervical lymphadenopathy. LUNGS: Clear to auscultation bilaterally. There are no rales, wheezes or rhonchi. HEART: Regular rate and rhythm, no murmurs, clicks, rubs or gallops. ABDOMEN: Soft, non-tender, non-distended. There are bowel sounds in all four quadrants. No rebound or guarding. EXTREMITIES: There is no peripheral cyanosis or edema. No focal swelling or erythema. NEURO: The patient moves all four extremities with 5/5 strength. Cranial nerves II - XII are intact. Normal gait. Alert and oriented SKIN: There is no apparent rash or petechiae. HEME/LYMPHATIC: There is no evidence of excessive bruising or lymphedema. PSYCHIATRIC: Tearful, anxious. She appears slightly depressed. No suicidal homicidal thoughts, no auditory or visual hallucinations. Normal mental status. Procedures/MDM Patient was taken to a room, seen and examined Medical decision makin-year-old female presents the emergency department with anxiety related symptoms that may be related to the gabapentin that she was just prescribed. At this time she shows no evidence of cardiopulmonary abdnormalities that might be causing her symptoms, including no wheezing or other findings.After reassurance, patient is clinically stable and appropriate for outpatient care. Departure Diagnosis: Primary Impression: Anxiety Condition: Stable Patient Instructions: Anxiety Reaction Additional Instructions: Make sure you are using your sleep apnea machine when taking the medication. See your doctor this week for a recheck. Return for any problems or concerns JACQUELINE ALONZO Nov 16, 2018 07:12
== END | disposition home or self-care (01) ==
LOC: FTE 06:47
DX: F41.9 Anxiety disorder, unspecified (principal)
CPT/HCPCS: 99283